=== PATIENT | female | born 1950 | race Caucasian/White ===

== ENCOUNTER 2017-08-02 13:07 | Emergency (ER) | payer MEDICARE ==
[2017-08-02] MEDS ORDERED: HYDROcodone/Acetaminophen 10/325 mg Tablet ONE (14:12)
[2017-08-02] MEDS ORDERED: Cephalexin 500 MG CAP ONE (14:12)
[2017-08-02] MEDS ORDERED: Naproxen 500 MG TAB ONE (14:12)
== END 2017-08-02 14:20 | disposition home or self-care (01) ==
LOC: MADERS 13:07
DX: L02.01 Cutaneous abscess of face (principal); E11.9 Type 2 diabetes mellitus without complications; E03.9 Hypothyroidism, unspecified; E78.5 Hyperlipidemia, unspecified; I10 Essential (primary) hypertension; Z79.4 Long term (current) use of insulin; Z79.899 Other long term (current) drug therapy; Z79.84 Long term (current) use of oral hypoglycemic drugs
CPT/HCPCS: 99282

== ENCOUNTER 2018-03-18 14:30 | Outpatient (CLI) | payer MEDICARE ==
--- NOTE | 2018-03-18 16:48 | RAD ---
PA AND LATERAL CHEST X-RAY 03/18/18 HISTORY: Bronchitis. COMPARISON: None available. FINDINGS: The cardiac silhouette and pulmonary vasculature are within normal limits. The lungs are clear. [place] us structures are intact. IMPRESSION: No acute cardiopulmonary process. POS: [facility]
== END 2018-03-18 14:31 | disposition home or self-care (01) ==
LOC: MADRAD 14:30
PROVIDERS: ATTEND Physician Assistant
DX: J40 Bronchitis, not specified as acute or chronic (principal)
CPT/HCPCS: 71046

== ENCOUNTER 2018-05-31 10:23 | Emergency (ER) | payer MEDICARE ==
[2018-05-31] MEDS ORDERED: Bacitracin Zinc 1 Packet ONE (10:55)
[2018-05-31] MEDS ORDERED: Amoxicillin/Potassium Clav 875 MG TAB ONE (11:07)
== END 2018-05-31 11:05 | disposition home or self-care (01) ==
LOC: MADERS 10:23
DX: S61.452A Open bite of left hand, initial encounter (principal); E11.9 Type 2 diabetes mellitus without complications; Z79.4 Long term (current) use of insulin; Z79.899 Other long term (current) drug therapy; W55.01XA Bitten by cat, initial encounter
CPT/HCPCS: 99283

== ENCOUNTER 2018-09-01 08:16 | Outpatient (CLI) | payer MEDICARE ==
[2018-09-01] MEDS ORDERED: Iopamidol 370 76% 100 ML VIAL ONE (09:21)
--- NOTE | 2018-09-01 09:46 | CT ---
CT CHEST WITH IV CONTRAST: History: Cough, congestion. FINDINGS: No focal infiltrate is evident. Airways are patent. Minimal linear scarring at the left posterior ape x. Subtle irregularity along the inner margin of the posterolateral aspect of the right lower rib may represent an old rib injury. No pleural fluid, pneumothorax, or mediastinal adenopathy. Calcificatio n in the coronary arteries. IMPRESSION: 1. Atherosclerosis. 2. No acute pulmonary abnormalities are demonstrated. POS: [facility]
== END 2018-09-01 08:17 | disposition home or self-care (01) ==
LOC: MADCT 08:16
PROVIDERS: ATTEND Physician Assistant
DX: R09.89 Other specified symptoms and signs involving the circulatory and respiratory systems (principal); I25.10 Atherosclerotic heart disease of native coronary artery without angina pectoris
CPT/HCPCS: 71260

== ENCOUNTER 2018-12-29 11:47 | Emergency (ER) | payer MEDICARE | END 2018-12-29 12:30 | disposition home or self-care (01) | LOC: MADERS 11:47 | DX: J18.9 Pneumonia, unspecified organism (principal); I11.0 Hypertensive heart disease with heart failure; I50.9 Heart failure, unspecified; J44.9 Chronic obstructive pulmonary disease, unspecified; E03.9 Hypothyroidism, unspecified; E78.5 Hyperlipidemia, unspecified; E11.9 Type 2 diabetes mellitus without complications; Z79.899 Other long term (current) drug therapy; Z79.84 Long term (current) use of oral hypoglycemic drugs; Z79.82 Long term (current) use of aspirin | CPT/HCPCS: 99284 ==

== ENCOUNTER 2019-04-08 14:34 | Emergency (ER) | payer MEDICARE ==
[2019-04-08] MEDS ORDERED: Dexamethasone 4 MG TAB ONE (15:19)
--- NOTE | 2019-04-08 15:33 | RAD ---
CHEST TWO VIEWS: HISTORY: Cough. COMPARISON: 03/18/2018 FINDINGS: Prompt pulmonary artery segments are again noted, especially pronounced on the right. This is a stab le finding. The lungs appear clear. No infiltrate or vascular congestion. IMPRESSION: The prominent right pulmonary artery is a stable finding. No acute abnormality. POS: [facility]
[2019-04-08] MEDS ORDERED: Ventolin HFA Inhaler 60 PUFF INHALER ONE (15:49)
[2019-04-08] MEDS ORDERED: Amoxicillin/Potassium Clav 875 MG TAB ONE (15:49)
== END 2019-04-08 16:02 | disposition home or self-care (01) ==
LOC: MADERS 14:34
DX: J18.9 Pneumonia, unspecified organism (principal); I11.0 Hypertensive heart disease with heart failure; I50.9 Heart failure, unspecified; E11.9 Type 2 diabetes mellitus without complications; E03.9 Hypothyroidism, unspecified; J44.9 Chronic obstructive pulmonary disease, unspecified; E78.5 Hyperlipidemia, unspecified; Z79.51 Long term (current) use of inhaled steroids; Z79.899 Other long term (current) drug therapy; Z79.82 Long term (current) use of aspirin
CPT/HCPCS: 71046; J7620; J8540

== ENCOUNTER 2019-06-02 12:32 | Emergency (ER) | payer MEDICARE ==
[2019-06-02 13:02] LABS: Bilirubin Negative (Negative); Blood, Urine Trace (Negative); Clarity Clear (Clear); Glucose, Urine (Dipstick) Negative (Negative); Leukocyte Small (Negative); Nitrite Negative (Negative); Protein, Urine (Dipstick) Negative (Neg-Trace); Urobilinogen 0.2 mg/dL (Less than 2)
[2019-06-02 13:09] LABS: Bacteria/HPF Rare-Few HPF (None Seen); RBC/HPF 0-3 HPF (0-3); WBC/HPF 21-50 HPF (0-3)
== END 2019-06-02 13:34 | disposition home or self-care (01) ==
LOC: MADERS 12:32
DX: N39.0 Urinary tract infection, site not specified (principal); I89.0 Lymphedema, not elsewhere classified; E11.9 Type 2 diabetes mellitus without complications; E03.9 Hypothyroidism, unspecified; E78.5 Hyperlipidemia, unspecified; I11.0 Hypertensive heart disease with heart failure; I50.9 Heart failure, unspecified; Z79.899 Other long term (current) drug therapy; Z79.82 Long term (current) use of aspirin; Z79.51 Long term (current) use of inhaled steroids
CPT/HCPCS: 81003; 81015; 87077; 87086; 87186; 99283

== ENCOUNTER 2019-06-03 06:34 | Emergency (ER) | payer MEDICARE ==
[2019-06-03] MEDS ORDERED: Acetaminophen 500 MG TAB ONE (06:51)
[2019-06-03] MEDS ORDERED: Sodium Chloride 0.9% 1,000 ML ONE (07:31)
[2019-06-03] MEDS ORDERED: Ketorolac Tromethamine 30 MG/ML VIAL ONE (07:31)
[2019-06-03] MEDS ORDERED: cefTRIAXone\\ROCEPHIN 1 GM VIAL ONE (07:31)
[2019-06-03] MEDS ORDERED: Ondansetron PF 4 MG/2 ML Vial ONE (07:31)
[2019-06-03 07:55] LABS: ALT (SGPT) 14 U/L (8-55); AST (SGOT) 14 U/L (5-34); Albumin 3.9 g/dL (3.4-4.8); Alkaline Phosphatase 107 U/L (40-150); Anion Gap 16 mmol/L (10-20); BUN (Urea Nitrogen) 11 mg/dL (9.8-20.1); Bilirubin, Total 0.5 mg/dL (0.2-1.2); Calc. Creatinine Clearance 0 mL/min (70-130); Calcium 9.4 mg/dL (7.8-10.44); Carbon Dioxide 25 mmol/L (23-31); Chloride 98 mmol/L (98-107); Estimated GFR-MDRD 73; Globulin 3.5 g/dL (2.4-3.5); Glucose 254 mg/dL (80-115); Potassium 4.1 mmol/L (3.5-5.1); Protein, Total 7.4 g/dL (6.0-8.3); Sodium 135 mmol/L (136-145)
[2019-06-03 07:56] LABS: Band 1 % (5-11); Hemoglobin 11.6 g/dL (12.0-16.0); MDiff Complete? YES; Mean Corpuscular HGB CONC 31.5 g/dL (32.0-36.0); Mean Corpuscular Hemoglobin 27.4 pg (27.0-31.0); Mean Platelet Volume 6.8 fL (7.4-10.4); Monocytes 1 % (0-10); Neutrophil 97 % (42-75); Platelet Count 287 thou/uL (130-400); Platelet Morphology Comment Appears Adequate; Reactive Lymphocytes 1 % (0-10); Red Blood Cell (RBC) Count 4.24 mill/uL (4.20-5.40); White Blood Cell (WBC) Count 16.1 thou/uL (4.8-10.8)
--- NOTE | 2019-06-03 09:45 | CT ---
CTA Angio Chest W WO Con History: Dyspnea. Pneumonia. Comparison: Radiograph same day Findings: CT angiogram of the chest performed after the intravenous administration of contrast. 3-D r endering provided. Exam is limited due to the delayed phase of contrast. No proximal segmental pulmonary arterial filling defect. Pulmonary arteries are dilated. Moderate amount of fluid within th e right inferior pericardial venous recess. Limited evaluation of the upper abdomen is unremarkable. No pneumonia. No pneumothorax. No effusion. Extensive motion artifact throughout the exam. No thoracic spine compression fracture. No acute osseous abnormality. Impression: 1. No proximal segmental pulmonary arterial filling defect. 2. No acute inflammatory process within the chest. 3. Mild dilatation of the pulmonary arteries, a secondary sign of pulmonary arterial hypertension.
[2019-06-03] MEDS ORDERED: Insulin Regular 300 UNITS/3 ML VIAL ONE (10:17)
[2019-06-03] MEDS ORDERED: Iopamidol 370 76% 125 ML VIAL FS ONE (13:52)
== END 2019-06-03 10:22 | disposition short-term general hospital (02) ==
LOC: MADERS 06:34
DX: A41.9 Sepsis, unspecified organism (principal); E87.70 Fluid overload, unspecified; E11.65 Type 2 diabetes mellitus with hyperglycemia; E87.1 Hypo-osmolality and hyponatremia; R09.02 Hypoxemia; I11.0 Hypertensive heart disease with heart failure; I50.9 Heart failure, unspecified; E78.5 Hyperlipidemia, unspecified; E03.9 Hypothyroidism, unspecified; J44.9 Chronic obstructive pulmonary disease, unspecified; Z79.82 Long term (current) use of aspirin; Z79.84 Long term (current) use of oral hypoglycemic drugs; Z79.899 Other long term (current) drug therapy
CPT/HCPCS: 36415; 71275; 80053; 83605; 83880; 85025; 87040; 94760; 96365; 96375; J0696; J1815; J1885; J2405; J7050; Q9967

== ENCOUNTER 2019-08-10 19:18 | Emergency (ER) | payer MEDICARE ==
[~2019-08-10 19:18] MED LIST: Iopamidol 370 76% 125 ML VIAL FS ONE
[2019-08-10] MEDS ORDERED: methylPREDNISolone Sod Succ/PF 125 MG/2 ML VIAL ONE (20:01)
[2019-08-10 20:31] LABS: #Basophils 0.1 thou/uL (0.0-0.2); #Eosinphils 0.6 thou/uL (0.0-0.7); #Lymphocytes 3.1 thou/uL (1.20-3.40); #Monocytes 0.7 thou/uL (0.11-0.59); #Neutrophils 10.5 thou/uL (1.40-6.50); %Basophils 0.9 % (0.0-1.0); %Eosinophils 3.8 % (0.0-10.0); %Lymphocytes 20.9 % (21.0-51.0); %Monocytes 4.5 % (0.0-10.0); Hemoglobin 9.6 g/dL (12.0-16.0); Mean Corpuscular HGB CONC 31.6 g/dL (32.0-36.0); Mean Corpuscular Hemoglobin 27.5 pg (27.0-31.0); Mean Corpuscular Volume 86.8 fL (78.0-98.0); Mean Platelet Volume 5.9 fL (7.4-10.4); Platelet Count 359 thou/uL (130-400); RBC Distribution Width 14.8 % (11.5-14.5); Red Blood Cell (RBC) Count 3.51 mill/uL (4.20-5.40); White Blood Cell (WBC) Count 14.9 thou/uL (4.8-10.8)
[2019-08-10 20:48] LABS: ALT (SGPT) 10 U/L (8-55); AST (SGOT) 10 U/L (5-34); Albumin 3.9 g/dL (3.4-4.8); Alkaline Phosphatase 103 U/L (40-150); Anion Gap 18 mmol/L (10-20); BUN (Urea Nitrogen) 13 mg/dL (9.8-20.1); Bilirubin, Total 0.3 mg/dL (0.2-1.2); Calc. Creatinine Clearance 0 mL/min (70-130); Calcium 9.6 mg/dL (7.8-10.44); Carbon Dioxide 25 mmol/L (23-31); Chloride 100 mmol/L (98-107); Estimated GFR-MDRD 65; Globulin 3.3 g/dL (2.4-3.5); Glucose 302 mg/dL (80-115); Potassium 4.5 mmol/L (3.5-5.1); Protein, Total 7.2 g/dL (6.0-8.3); Sodium 138 mmol/L (136-145)
--- NOTE | 2019-08-10 20:48 | RAD ---
CHEST ONE VIEW: 08/10/19 HISTORY: Dyspnea. COMPARISON: 04/08/19. FINDINGS: Upper normal cardiac silhouette. Pulmonary vessels are slightly prominent. The costophrenic angles ar e clear. Patchy interstitial opacities, without consolidation, or mass. No pneumothorax or osseous ab normalities. IMPRESSION: Cardiomegaly. Pulmonary vascular prominence. Correlate for volume overload. POS: [facility]
[2019-08-10] MEDS ORDERED: Furosemide 40 MG/4 ML VIAL ONE (21:53)
--- NOTE | 2019-08-10 23:40 | CT ---
CT ANGIOGRAM THORAX WITH CONTRAST: (CTA pulmonary angiogram) HISTORY: 69-year-old female with elevated d-dimer and dyspnea TECHNIQUE: IV injection of iodinated contrast. Scan acquisition timing attempted to coincide with iodinated contrast bolus reaching maximal density in pulmonary arteries. 3-D MIP reconstructions. FINDINGS: Diffuse mild groundglass pulmonary densities throughout the bilateral upper lobes and lower lobes, no nspecific. The images, especially the lower lung zones, are significantly degraded by patient breathing motion artifact. This makes it difficult to evaluate for pulmonary thromboembolism involvin g the lower lobe pulmonary artery branches. There is no pulmonary thromboembolism involving the pulmonic trunk, left and right main pulmonary arteries, or the proximal upper lobe first order branch es. Mild mediastinal and bilateral hilar lymphadenopathy without calcification. Tiny right pleural effusion. No pneumothorax. No pericardial effusion. No thoracic aortic aneurysm or dissection. Diffus e narrowing of the right mainstem bronchus and lower portion of trachea. Milder degree of diffuse narrowing of left mainstem bronchus. IMPRESSION: 1. Suboptimal evaluation. Images degraded by breathing motion. 2. No central pulmonary thromboembolism. Difficult to evaluate for peripheral pulmonary thromboemboli sm. 3. Apparent diffuse mild groundglass pulmonary densities. Some of this could be artifact due to breat valdez motion, but it is likely that at least some of this represents mild pulmonary interstitial edema. 4. Mild mediastinal and bilateral hilar lymphadenopathy. 5. Diffuse narrowing of the bilateral mainstem bronchi, especially the right, and the sarahi. 6. Tiny right pleural effusion.
== END 2019-08-10 23:50 | disposition home or self-care (01) ==
LOC: MADERS 19:18
DX: J44.1 Chronic obstructive pulmonary disease with (acute) exacerbation (principal); D64.9 Anemia, unspecified; I11.0 Hypertensive heart disease with heart failure; I50.9 Heart failure, unspecified; E11.9 Type 2 diabetes mellitus without complications; E03.9 Hypothyroidism, unspecified; E78.5 Hyperlipidemia, unspecified; Z79.899 Other long term (current) drug therapy; Z79.4 Long term (current) use of insulin; Z79.82 Long term (current) use of aspirin; Z79.51 Long term (current) use of inhaled steroids
CPT/HCPCS: 71045; 71275; 80053; 83605; 83880; 84484; 85025; 85379; 87040; 93005; 94760; 96374; 96375; J1940; J2930; J7620; Q9967

== ENCOUNTER 2019-10-23 12:44 | Emergency (ER) | payer MEDICARE | END 2019-10-23 14:18 | disposition home or self-care (01) | LOC: MADERS 12:44 | DX: J44.1 Chronic obstructive pulmonary disease with (acute) exacerbation (principal); I11.0 Hypertensive heart disease with heart failure; I50.9 Heart failure, unspecified; E11.9 Type 2 diabetes mellitus without complications; E03.9 Hypothyroidism, unspecified; E78.5 Hyperlipidemia, unspecified; Z79.899 Other long term (current) drug therapy; Z79.4 Long term (current) use of insulin; Z79.82 Long term (current) use of aspirin; Z79.51 Long term (current) use of inhaled steroids; Z79.52 Long term (current) use of systemic steroids | CPT/HCPCS: 96372; 99284; J1040; J7620 ==

== ENCOUNTER 2021-05-24 10:21 | Outpatient (CLI) | payer MEDICARE | END 2021-05-24 10:22 | disposition home or self-care (01) | LOC: MADRAD 10:21 | PROVIDERS: ATTEND Physician Assistant | DX: M79.601 Pain in right arm (principal); M47.812 Spondylosis without myelopathy or radiculopathy, cervical region | CPT/HCPCS: 72040 ==

== ENCOUNTER 2021-06-09 16:28 | Emergency (ER) | payer MEDICARE | END 2021-06-09 17:42 | disposition home or self-care (01) | LOC: MADERS 16:28 | DX: S82.831A Other fracture of upper and lower end of right fibula, initial encounter for closed fracture (principal); S82.54XA Nondisplaced fracture of medial malleolus of right tibia, initial encounter for closed fracture; J45.909 Unspecified asthma, uncomplicated; E11.9 Type 2 diabetes mellitus without complications; I11.0 Hypertensive heart disease with heart failure; I50.9 Heart failure, unspecified; E03.9 Hypothyroidism, unspecified; E78.5 Hyperlipidemia, unspecified; J44.9 Chronic obstructive pulmonary disease, unspecified; Z79.82 Long term (current) use of aspirin; Z79.899 Other long term (current) drug therapy; Z79.84 Long term (current) use of oral hypoglycemic drugs; X50.9XXA Other and unspecified overexertion or strenuous movements or postures, initial encounter | CPT/HCPCS: 27760 ==

== ENCOUNTER 2022-03-04 10:06 | Emergency (ER) | payer MEDICARE ==
[~2022-03-04 10:06] MED LIST changes: -Iopamidol 370 76% 125 ML VIAL FS ONE; +Sodium Chloride 0.9% 500 ML BAG ONE
[2022-03-04 10:44] LABS: #Basophils 0.2 thou/uL (0.0-0.2); #Eosinphils 0.1 thou/uL (0.0-0.7); #Lymphocytes 2.5 thou/uL (1.20-3.40); #Neutrophils 8.4 thou/uL (1.40-6.50); %Basophils 1.3 % (0.0-1.0); %Eosinophils 0.8 % (0.0-10.0); %Lymphocytes 20.8 % (21.0-51.0); %Monocytes 8.1 % (0.0-10.0); Hemoglobin 12.4 g/dL (12.0-16.0); Mean Corpuscular HGB CONC 32.5 g/dL (32.0-36.0); Mean Corpuscular Hemoglobin 28.6 pg (27.0-31.0); Mean Corpuscular Volume 88.2 fL (78.0-98.0); Mean Platelet Volume 6.3 fL (7.4-10.4); Platelet Count 466 thou/uL (130-400); RBC Distribution Width 12.9 % (11.5-14.5); Red Blood Cell (RBC) Count 4.34 mill/uL (4.20-5.40); White Blood Cell (WBC) Count 12.1 thou/uL (4.8-10.8)
[2022-03-04 11:02] LABS: ALT (SGPT) 15 U/L (8-55); AST (SGOT) 17 U/L (5-34); Alkaline Phosphatase 112 U/L (40-110); Anion Gap 17 mmol/L (10-20); BUN (Urea Nitrogen) 12 mg/dL (9.8-20.1); Bilirubin, Total 0.4 mg/dL (0.2-1.2); Calc. Creatinine Clearance 0 mL/min (70-130); Calcium 9.9 mg/dL (7.8-10.44); Carbon Dioxide 21 mmol/L (23-31); Chloride 98 mmol/L (98-107); Globulin 3.9 g/dL (2.4-3.5); Glucose 178 mg/dL (83-110); Potassium 4.4 mmol/L (3.5-5.1); Protein, Total 7.9 g/dL (5.8-8.1); Sodium 132 mmol/L (136-145)
[2022-03-04] MEDS ORDERED: Lorazepam 2 MG/ML VIAL ONE (11:06)
[2022-03-04] MEDS ORDERED: Lorazepam 2 MG/ML VIAL SLOW IVP SCH (11:15)
== END 2022-03-04 12:10 | disposition home or self-care (01) ==
LOC: MADERS 10:06
DX: F45.8 Other somatoform disorders (principal); G47.00 Insomnia, unspecified; K11.7 Disturbances of salivary secretion; E11.9 Type 2 diabetes mellitus without complications; I11.0 Hypertensive heart disease with heart failure; I50.9 Heart failure, unspecified; J44.9 Chronic obstructive pulmonary disease, unspecified; Z79.899 Other long term (current) drug therapy; Z79.82 Long term (current) use of aspirin; Z79.84 Long term (current) use of oral hypoglycemic drugs; Z79.4 Long term (current) use of insulin
CPT/HCPCS: 71045; 80053; 84443; 85025; 93005; 94760; 96374; J2060; J7030

== ENCOUNTER 2022-03-04 19:17 | Emergency (ER) | payer MEDICARE | END 2022-03-04 19:58 | disposition home or self-care (01) | LOC: MADERS 19:17 | DX: F41.9 Anxiety disorder, unspecified (principal); G47.00 Insomnia, unspecified; I10 Essential (primary) hypertension; E11.9 Type 2 diabetes mellitus without complications; Z79.899 Other long term (current) drug therapy; Z79.84 Long term (current) use of oral hypoglycemic drugs; Z79.82 Long term (current) use of aspirin; Z79.4 Long term (current) use of insulin; E78.5 Hyperlipidemia, unspecified; J44.9 Chronic obstructive pulmonary disease, unspecified | CPT/HCPCS: 71045; 80053; 84443; 85025; 93005; 94760; 96374; 99283; J2060; J7030 ==

== ENCOUNTER 2022-05-02 15:39 | Emergency (ER) | payer MEDICARE | END 2022-05-02 16:41 | disposition short-term general hospital (02) | LOC: MADERS 15:39 | DX: R60.0 Localized edema (principal); I11.0 Hypertensive heart disease with heart failure; I50.9 Heart failure, unspecified; E11.9 Type 2 diabetes mellitus without complications; E03.9 Hypothyroidism, unspecified; E78.5 Hyperlipidemia, unspecified; J44.9 Chronic obstructive pulmonary disease, unspecified; Z79.899 Other long term (current) drug therapy; Z79.4 Long term (current) use of insulin | CPT/HCPCS: 99284 ==

== ENCOUNTER 2022-06-08 01:22 | Emergency (ER) | payer MEDICARE ==
[2022-06-08] MEDS ORDERED: Aspirin Chewable 81 MG TAB ONE (01:59)
[2022-06-08 02:20] LABS: #Basophils 0.2 thou/uL (0.0-0.2); #Eosinphils 0.7 thou/uL (0.0-0.7); #Lymphocytes 2.9 thou/uL (1.20-3.40); %Eosinophils 3.9 % (0.0-10.0); %Lymphocytes 17.3 % (21.0-51.0); %Monocytes 6.1 % (0.0-10.0); %Neutrophils 71.7 % (42.0-75.0); Hemoglobin 10.5 g/dL (12.0-16.0); Mean Corpuscular HGB CONC 32.9 g/dL (32.0-36.0); Mean Corpuscular Hemoglobin 27.8 pg (27.0-31.0); Mean Corpuscular Volume 84.3 fL (78.0-98.0); Mean Platelet Volume 6.5 fL (7.4-10.4); Platelet Count 372 thou/uL (130-400); RBC Distribution Width 13.2 % (11.5-14.5); White Blood Cell (WBC) Count 16.7 thou/uL (4.8-10.8)
[2022-06-08 02:38] LABS: ALT (SGPT) 18 U/L (8-55); AST (SGOT) 17 U/L (5-34); Albumin 3.8 g/dL (3.4-4.8); Alkaline Phosphatase 92 U/L (40-110); Anion Gap 16 mmol/L (10-20); BUN (Urea Nitrogen) 32 mg/dL (9.8-20.1); Bilirubin, Total 0.3 mg/dL (0.2-1.2); Calc. Creatinine Clearance 0 mL/min (70-130); Calcium 9.4 mg/dL (7.8-10.44); Carbon Dioxide 23 mmol/L (23-31); Chloride 100 mmol/L (98-107); Estimated GFR 68; Globulin 3.6 g/dL (2.4-3.5); Glucose 187 mg/dL (83-110); Potassium 4.6 mmol/L (3.5-5.1); Protein, Total 7.4 g/dL (5.8-8.1); Sodium 134 mmol/L (136-145)
[2022-06-08 03:12] LABS: Bilirubin Negative (Negative); Blood, Urine Negative (Negative); Clarity Clear (Clear); Glucose, Urine (Dipstick) Negative (Negative); Ketone, Urine Negative (Negative); Leukocyte Moderate (Negative); Nitrite Negative (Negative); Protein, Urine (Dipstick) Negative (Neg-Trace); Urobilinogen 0.2 mg/dL (Less than 2)
[2022-06-08 03:20] LABS: Bacteria/HPF None Seen HPF (None Seen); RBC/HPF 0-3 HPF (0-3); Squamous Epithelial 0-3 HPF (0-3); Transitional Epithelial 0-3 HPF (None Seen)
[2022-06-08] MEDS ORDERED: cefTRIAXone\\ROCEPHIN 1 GM VIAL ONE (03:20)
[2022-06-08] MEDS ORDERED: Furosemide 40 MG/4 ML VIAL ONE (03:21)
[2022-06-08] MEDS ORDERED: methylPREDNISolone Sod Succ/PF 125 MG/2 ML VIAL ONE (03:21)
[2022-06-08] MEDS ORDERED: Sodium Chloride 0.9% 100 ML ONE (03:22)
[2022-06-08 04:37] LABS: SARS-CoV-2 NAA Rapid Test Not Detected (NotDetected)
== END 2022-06-08 04:12 | disposition short-term general hospital (02) ==
LOC: MADERS 01:22
DX: J44.1 Chronic obstructive pulmonary disease with (acute) exacerbation (principal); N39.0 Urinary tract infection, site not specified; R07.89 Other chest pain; I11.0 Hypertensive heart disease with heart failure; I50.9 Heart failure, unspecified; E11.9 Type 2 diabetes mellitus without complications; E03.9 Hypothyroidism, unspecified; E78.5 Hyperlipidemia, unspecified; Z20.822 Contact with and (suspected) exposure to COVID-19; Z79.82 Long term (current) use of aspirin; Z79.4 Long term (current) use of insulin; Z79.899 Other long term (current) drug therapy
CPT/HCPCS: 71045; 80053; 83605; 83880; 84484; 85025; 85379; 87086; 93005; 96365; 96375; 99285; U0002; 81003; 81015; J0696; J1940; J2930; J7620

== ENCOUNTER 2023-01-27 14:19 | Outpatient (CLI) | payer MEDICARE | END 2023-01-27 14:20 | disposition home or self-care (01) | LOC: MADLAB 14:19 | PROVIDERS: ATTEND Physician Assistant | DX: R20.2 Paresthesia of skin (principal); M47.812 Spondylosis without myelopathy or radiculopathy, cervical region; M50.322 Other cervical disc degeneration at C5-C6 level | CPT/HCPCS: 72050 ==

== ENCOUNTER 2023-01-31 17:29 | Emergency (ER) | payer MEDICARE ==
[~2023-01-31 17:29] MED LIST changes: +Iopamidol 370 76% 125 ML VIAL FS ONE; +Sodium Chloride 0.9% 100 ML BAG ONE; -Sodium Chloride 0.9% 500 ML BAG ONE
[2023-01-31] MEDS ORDERED: Aspirin 325 MG TAB ONE (18:11)
[2023-01-31 18:16] LABS: #Basophils 0.2 thou/uL (0.0-0.2); #Eosinphils 0.2 thou/uL (0.0-0.7); #Lymphocytes 3.7 thou/uL (1.20-3.40); #Neutrophils 7.7 thou/uL (1.40-6.50); %Basophils 1.2 % (0.0-1.0); %Eosinophils 1.8 % (0.0-10.0); %Lymphocytes 28.9 % (21.0-51.0); %Monocytes 7.8 % (0.0-10.0); %Neutrophils 60.4 % (42.0-75.0); Hemoglobin 10.9 g/dL (12.0-16.0); Mean Corpuscular HGB CONC 34.1 g/dL (32.0-36.0); Mean Corpuscular Hemoglobin 29.3 pg (27.0-31.0); Mean Corpuscular Volume 86.1 fl (78.0-98.0); Mean Platelet Volume 5.9 fL (7.4-10.4); Platelet Count 379 10x3/uL (130-400); RBC Distribution Width 12.5 % (11.5-14.5); Red Blood Cell (RBC) Count 3.72 mill/uL (4.20-5.40); White Blood Cell (WBC) Count 12.8 10x3/uL (4.8-10.8)
[2023-01-31 18:24] LABS: Prothrombin Time 13.3 sec (12.0-14.7)
[2023-01-31 18:25] LABS: PTT 33.3 sec (22.9-36.1)
[2023-01-31 18:33] LABS: ALT (SGPT) 13 U/L (8-55); AST (SGOT) 13 U/L (5-34); Albumin 4.3 g/dL (3.4-4.8); Alkaline Phosphatase 60 U/L (40-110); Anion Gap 14 mmol/L (10-20); BUN (Urea Nitrogen) 35 mg/dL (9.8-20.1); Bilirubin, Total 0.2 mg/dL (0.2-1.2); Calc. Creatinine Clearance 0 mL/min (70-130); Calcium 9.8 mg/dL (7.8-10.44); Carbon Dioxide 23 mmol/L (23-31); Chloride 103 mmol/L (98-107); Estimated GFR 44; Glucose 223 mg/dL (83-110); Magnesium 1.9 mg/dL (1.6-2.6); Potassium 4.2 mmol/L (3.5-5.1); Protein, Total 7.3 g/dL (5.8-8.1); Sodium 136 mmol/L (136-145)
[2023-01-31 18:47] LABS: Bilirubin Negative (Negative); Blood, Urine Negative (Negative); Clarity Slightly Cloudy (Clear); Glucose, Urine (Dipstick) Negative (Negative); Ketone, Urine Negative (Negative); Leukocyte Moderate (Negative); Nitrite Negative (Negative); Protein, Urine (Dipstick) Negative (Neg-Trace); Specific Gravity, Urine 1.015 (1.005-1.030); Urobilinogen 0.2 mg/dL (Less than 2)
[2023-01-31 18:48] LABS: Bacteria/HPF 4+ HPF (None Seen); RBC/HPF 0-3 HPF (0-3); Squamous Epithelial 0-3 HPF (0-3); WBC/HPF Greater than 50 HPF (0-3)
[2023-01-31] MEDS ORDERED: Sodium Chloride 0.9% 100 ML ONE ×2 (19:18→19:20)
[2023-01-31] MEDS ORDERED: cefTRIAXone\\ROCEPHIN 1 GM VIAL ONE (19:18)
[2023-01-31] MEDS ORDERED: Diltiazem 125 MG/25 ML ONE (19:20)
[2023-01-31 19:37] LABS: SARS-CoV-2 NAA Rapid Test Not Detected (NotDetected)
[2023-01-31 21:39] LABS: Troponin I 0.015 ng/mL (< 0.028)
== END 2023-01-31 22:25 | disposition short-term general hospital (02) ==
LOC: MADERS 17:29
DX: I48.91 Unspecified atrial fibrillation (principal); A41.9 Sepsis, unspecified organism; N39.0 Urinary tract infection, site not specified; D72.829 Elevated white blood cell count, unspecified; I11.0 Hypertensive heart disease with heart failure; I50.9 Heart failure, unspecified; E11.9 Type 2 diabetes mellitus without complications; E03.9 Hypothyroidism, unspecified; E78.5 Hyperlipidemia, unspecified; J44.9 Chronic obstructive pulmonary disease, unspecified; Z79.4 Long term (current) use of insulin; Z79.82 Long term (current) use of aspirin
CPT/HCPCS: 71045; 71275; 82962; 83605; 83735; 83880; 84484 ×2; 85610; 85730; 87040; 87086; 93005; 96365; 96366; 96372; 96375; 96376; 99285; U0002; 36416; 80053; 81003; 81015; 84443; 85025; 87077; 87186; J0696; J1650; J3490; Q9967

== ENCOUNTER 2023-02-13 11:40 | Emergency (ER) | payer MEDICARE | END 2023-02-13 13:00 | disposition home or self-care (01) | LOC: MADERS 11:40 | DX: I11.0 Hypertensive heart disease with heart failure (principal); I50.9 Heart failure, unspecified; J45.909 Unspecified asthma, uncomplicated; Z79.899 Other long term (current) drug therapy; E11.9 Type 2 diabetes mellitus without complications; E03.9 Hypothyroidism, unspecified; E78.5 Hyperlipidemia, unspecified | CPT/HCPCS: 99283 ==

== ENCOUNTER 2023-02-26 07:31 | Outpatient (CLI) | payer MEDICARE | END 2023-02-26 07:32 | disposition home or self-care (01) | LOC: MADULT 07:31 | PROVIDERS: ATTEND Urology | DX: N39.0 Urinary tract infection, site not specified (principal) | CPT/HCPCS: 76770 ==

== ENCOUNTER 2023-03-05 14:49 | Outpatient (CLI) | payer MEDICARE | END 2023-03-05 14:50 | disposition home or self-care (01) | LOC: MADLAB 14:49 | PROVIDERS: ATTEND Nurse Practitioner Family | DX: R07.89 Other chest pain (principal); J44.9 Chronic obstructive pulmonary disease, unspecified; J18.9 Pneumonia, unspecified organism; J45.998 Other asthma; N39.0 Urinary tract infection, site not specified; I10 Essential (primary) hypertension; I48.91 Unspecified atrial fibrillation; E78.5 Hyperlipidemia, unspecified; E03.9 Hypothyroidism, unspecified; E13.01 Other specified diabetes mellitus with hyperosmolarity with coma | CPT/HCPCS: 71046 ==

== ENCOUNTER 2023-03-25 01:32 | Emergency (ER) | payer MEDICARE ==
[2023-03-25] MEDS ORDERED: Sodium Chloride 0.9% 500 ML ONE (02:00)
[2023-03-25] MEDS ORDERED: Piperacillin/Tazobactam 4.5 GM VIAL ONE (02:00)
[2023-03-25] MEDS ORDERED: Sodium Chloride 0.9% 100 ML ONE ×2 (02:00→11:39)
[2023-03-25 02:03] LABS: #Basophils 0.1 thou/uL (0.0-0.2); #Eosinphils 0.2 thou/uL (0.0-0.7); #Lymphocytes 0.8 thou/uL (1.20-3.40); #Monocytes 0.6 thou/uL (0.11-0.59); #Neutrophils 16.8 thou/uL (1.40-6.50); %Basophils 0.5 % (0.0-1.0); %Eosinophils 0.9 % (0.0-10.0); %Lymphocytes 4.1 % (21.0-51.0); %Monocytes 3.4 % (0.0-10.0); %Neutrophils 91.1 % (42.0-75.0); Hemoglobin 10.6 g/dL (12.0-16.0); Mean Corpuscular HGB CONC 33.2 g/dL (32.0-36.0); Mean Corpuscular Hemoglobin 29.8 pg (27.0-31.0); Mean Corpuscular Volume 89.8 fl (78.0-98.0); Mean Platelet Volume 7.1 fL (7.4-10.4); Platelet Count 433 10x3/uL (130-400); RBC Distribution Width 14.2 % (11.5-14.5); Red Blood Cell (RBC) Count 3.56 mill/uL (4.20-5.40); White Blood Cell (WBC) Count 18.5 10x3/uL (4.8-10.8)
[2023-03-25 02:12] LABS: Bilirubin Negative (Negative); Blood, Urine Negative (Negative); Clarity Clear (Clear); Glucose, Urine (Dipstick) Negative (Negative); Ketone, Urine Negative (Negative); Leukocyte Negative (Negative); Nitrite Negative (Negative); Protein, Urine (Dipstick) Negative (Neg-Trace); Urobilinogen 0.2 mg/dL (Less than 2)
[2023-03-25 02:17] LABS: ALT (SGPT) 11 U/L (8-55); AST (SGOT) 16 U/L (5-34); Albumin 3.8 g/dL (3.4-4.8); Alkaline Phosphatase 77 U/L (40-110); Anion Gap 15 mmol/L (10-20); BUN (Urea Nitrogen) 26 mg/dL (9.8-20.1); Bilirubin, Total 0.2 mg/dL (0.2-1.2); Calc. Creatinine Clearance 0 mL/min (70-130); Calcium 9.5 mg/dL (7.8-10.44); Carbon Dioxide 21 mmol/L (23-31); Chloride 101 mmol/L (98-107); Estimated GFR 70; Globulin 2.8 g/dL (2.4-3.5); Glucose 176 mg/dL (83-110); Magnesium 1.6 mg/dL (1.6-2.6); Potassium 4.9 mmol/L (3.5-5.1); Protein, Total 6.6 g/dL (5.8-8.1); Sodium 132 mmol/L (136-145)
[2023-03-25] MEDS ORDERED: Vancomycin 1 GM VIAL ONE ×2 (02:54→12:38)
[2023-03-25] MEDS ORDERED: Sodium Chloride 0.9% 250 ML 250 ML ONE ×2 (02:54→12:38)
[2023-03-25 03:43] LABS: SARS-CoV-2 NAA Rapid Test Not Detected (NotDetected)
[2023-03-25] MEDS ORDERED: Acetaminophen 500 MG TAB ONE ×2 (04:54→13:25)
[2023-03-25 04:56] LABS: Troponin I Less than 0.010 ng/mL (< 0.028)
[2023-03-25] MEDS ORDERED: Insulin Regular 300 UNITS/3 ML VIAL ONE (09:20)
[2023-03-25] MEDS ORDERED: Piperacillin/Tazobactam 3.375 GM VIAL ONE (11:39)
[2023-03-25 13:35] LABS: #Eosinphils 0.2 thou/uL (0.0-0.7); #Lymphocytes 1.6 thou/uL (1.20-3.40); #Monocytes 0.9 thou/uL (0.11-0.59); #Neutrophils 10.9 thou/uL (1.40-6.50); %Basophils 0.3 % (0.0-1.0); %Eosinophils 1.8 % (0.0-10.0); %Monocytes 6.4 % (0.0-10.0); %Neutrophils 79.6 % (42.0-75.0); Hemoglobin 9.5 g/dL (12.0-16.0); Mean Corpuscular HGB CONC 33.1 g/dL (32.0-36.0); Mean Corpuscular Hemoglobin 29.7 pg (27.0-31.0); Mean Corpuscular Volume 89.5 fl (78.0-98.0); Mean Platelet Volume 6.9 fL (7.4-10.4); Platelet Count 412 10x3/uL (130-400); RBC Distribution Width 14.5 % (11.5-14.5); Red Blood Cell (RBC) Count 3.19 mill/uL (4.20-5.40); White Blood Cell (WBC) Count 13.7 10x3/uL (4.8-10.8)
== END 2023-03-25 15:58 | disposition short-term general hospital (02) ==
LOC: MADERS 01:32
DX: A41.9 Sepsis, unspecified organism (principal); E11.9 Type 2 diabetes mellitus without complications; E03.9 Hypothyroidism, unspecified; I11.0 Hypertensive heart disease with heart failure; I50.9 Heart failure, unspecified; E78.5 Hyperlipidemia, unspecified; Z79.4 Long term (current) use of insulin; Z79.01 Long term (current) use of anticoagulants; Z79.82 Long term (current) use of aspirin; Z79.899 Other long term (current) drug therapy; Z20.822 Contact with and (suspected) exposure to COVID-19
CPT/HCPCS: 36416; 71045; 80053; 81003; 83605; 83735; 83880; 84484; 85025; 87040; 87086; 93005; 96365; 96366; 96367; J1815; J2543; J3370; J3490; J7030; J7050; U0002

== ENCOUNTER 2023-04-09 07:12 | Emergency (ER) | payer MEDICARE ==
[2023-04-09 08:34] LABS: Bilirubin Negative (Negative); Blood, Urine Negative (Negative); Clarity Clear (Clear); Glucose, Urine (Dipstick) Negative (Negative); Ketone, Urine Negative (Negative); Leukocyte Negative (Negative); Nitrite Negative (Negative); Protein, Urine (Dipstick) Negative (Neg-Trace); Specific Gravity, Urine 1.015 (1.005-1.030); Urobilinogen 0.2 mg/dL (Less than 2)
[2023-04-09] MEDS ORDERED: predniSONE 10 MG TAB ONE (08:34)
[2023-04-09] MEDS ORDERED: Ipratropium/Albuterol 3 ML NEB ONE (08:34)
== END 2023-04-09 09:00 | disposition home or self-care (01) ==
LOC: MADERS 07:12
DX: J06.9 Acute upper respiratory infection, unspecified (principal); J45.901 Unspecified asthma with (acute) exacerbation; E11.9 Type 2 diabetes mellitus without complications; E03.9 Hypothyroidism, unspecified; E78.5 Hyperlipidemia, unspecified; I11.0 Hypertensive heart disease with heart failure; I50.9 Heart failure, unspecified; J44.9 Chronic obstructive pulmonary disease, unspecified; Z79.01 Long term (current) use of anticoagulants; Z79.899 Other long term (current) drug therapy; Z79.82 Long term (current) use of aspirin; Z79.4 Long term (current) use of insulin
CPT/HCPCS: 71045; 81003; 87086; 87804; J7512; J7620

== ENCOUNTER 2023-04-24 21:27 | Emergency (ER) | payer MEDICARE ==
[2023-04-24 22:32] LABS: #Basophils 0.1 thou/uL (0.0-0.2); #Eosinphils 0.4 thou/uL (0.0-0.7); #Lymphocytes 2.9 thou/uL (1.20-3.40); #Monocytes 1.1 thou/uL (0.11-0.59); #Neutrophils 9.5 thou/uL (1.40-6.50); %Basophils 0.8 % (0.0-1.0); %Eosinophils 2.8 % (0.0-10.0); %Monocytes 8.1 % (0.0-10.0); %Neutrophils 67.3 % (42.0-75.0); Hemoglobin 8.7 g/dL (12.0-16.0); Mean Corpuscular HGB CONC 34.5 g/dL (32.0-36.0); Mean Corpuscular Hemoglobin 30.3 pg (27.0-31.0); Mean Corpuscular Volume 87.7 fl (78.0-98.0); Mean Platelet Volume 5.8 fL (7.4-10.4); Platelet Count 420 10x3/uL (130-400); RBC Distribution Width 15.5 % (11.5-14.5); Red Blood Cell (RBC) Count 2.87 mill/uL (4.20-5.40); White Blood Cell (WBC) Count 14.1 10x3/uL (4.8-10.8)
[2023-04-24 22:52] LABS: ALT (SGPT) 21 U/L (8-55); AST (SGOT) 14 U/L (5-34); Albumin 3.6 g/dL (3.4-4.8); Alkaline Phosphatase 55 U/L (40-110); Anion Gap 17 mmol/L (10-20); BUN (Urea Nitrogen) 26 mg/dL (9.8-20.1); Bilirubin, Total 0.4 mg/dL (0.2-1.2); Calc. Creatinine Clearance 0 mL/min (70-130); Calcium 9.1 mg/dL (7.8-10.44); Carbon Dioxide 23 mmol/L (23-31); Chloride 97 mmol/L (98-107); Estimated GFR 50; Globulin 2.6 g/dL (2.4-3.5); Glucose 208 mg/dL (83-110); Potassium 5.2 mmol/L (3.5-5.1); Protein, Total 6.2 g/dL (5.8-8.1); Sodium 132 mmol/L (136-145)
[2023-04-24 23:11] LABS: CKMB 1.5 ng/mL (0-6.6)
[2023-04-24] MEDS ORDERED: Furosemide 40 MG/4 ML VIAL ONE (23:14)
== END 2023-04-24 23:44 | disposition home or self-care (01) ==
LOC: MADERS 21:27
DX: I11.0 Hypertensive heart disease with heart failure (principal); I50.9 Heart failure, unspecified; E11.9 Type 2 diabetes mellitus without complications; E03.9 Hypothyroidism, unspecified; J44.9 Chronic obstructive pulmonary disease, unspecified; Z79.899 Other long term (current) drug therapy; Z79.82 Long term (current) use of aspirin; Z79.4 Long term (current) use of insulin; Z79.01 Long term (current) use of anticoagulants
CPT/HCPCS: 71045; 80053; 82553; 83880; 84484; 85025; 93005; 96374; J1940

== ENCOUNTER 2024-02-20 18:49 | Emergency (ER) | payer MEDICARE | END 2024-02-20 19:40 | disposition home or self-care (01) | LOC: MADERS 18:49 | DX: I11.0 Hypertensive heart disease with heart failure (principal); I50.9 Heart failure, unspecified; E03.9 Hypothyroidism, unspecified; I48.91 Unspecified atrial fibrillation; J44.9 Chronic obstructive pulmonary disease, unspecified; Z79.01 Long term (current) use of anticoagulants; Z79.899 Other long term (current) drug therapy; Z79.82 Long term (current) use of aspirin | CPT/HCPCS: 99284 ==

== ENCOUNTER 2024-02-26 10:51 | Emergency (ER) | payer MEDICARE ==
[2024-02-26 11:38] LABS: Bilirubin Negative (Negative); Blood, Urine Negative (Negative); Glucose, Urine (Dipstick) >=1000 mg/dL (Negative); Ketone, Urine Negative (Negative); Leukocyte Moderate (Negative); Nitrite Negative (Negative); Protein, Urine (Dipstick) Negative (Neg-Trace); Urobilinogen 0.2 mg/dL (Less than 2); pH, Urine 6.5 (5.0-9.0)
[2024-02-26 11:39] LABS: CAUTI Indications for Culture Dysuria,urgency,freq; Clarity Hazy (Clear)
[2024-02-26 11:46] LABS: Bacteria/HPF 4+ HPF (None Seen); RBC/HPF 0-3 HPF (0-3); Squamous Epithelial 0-3 HPF (0-3)
[2024-02-26 11:57] LABS: #Basophils 0.1 thou/uL (0.0-0.2); #Eosinphils 0.5 thou/uL (0.0-0.7); #Lymphocytes 2.7 thou/uL (1.20-3.40); #Monocytes 1.2 thou/uL (0.11-0.59); #Neutrophils 9.7 thou/uL (1.40-6.50); %Basophils 0.9 % (0.0-1.0); %Eosinophils 3.5 % (0.0-10.0); %Monocytes 8.2 % (0.0-10.0); %Neutrophils 68.4 % (42.0-75.0); Hematocrit 35.4 % (36.0-47.0); Hemoglobin 10.8 g/dL (12.0-16.0); Mean Corpuscular HGB CONC 30.4 g/dL (32.0-36.0); Mean Corpuscular Hemoglobin 25.6 pg (27.0-31.0); Mean Corpuscular Volume 84.3 fl (78.0-98.0); Mean Platelet Volume 5.7 fL (7.4-10.4); Platelet Count 454 10x3/uL (130-400); RBC Distribution Width 16.3 % (11.5-14.5); White Blood Cell (WBC) Count 14.2 10x3/uL (4.8-10.8)
[2024-02-26 12:10] LABS: ALT (SGPT) 12 U/L (8-55); AST (SGOT) 15 U/L (5-34); Albumin 4.2 g/dL (3.4-4.8); Alkaline Phosphatase 93 U/L (40-110); Anion Gap 17 mmol/L (10-20); BUN (Urea Nitrogen) 36 mg/dL (9.8-20.1); Bilirubin, Total 0.4 mg/dL (0.2-1.2); Calc. Creatinine Clearance 0 mL/min (70-130); Calcium 10.1 mg/dL (7.8-10.44); Carbon Dioxide 21 mmol/L (23-31); Chloride 101 mmol/L (98-107); Estimated GFR 42; Globulin 3.7 g/dL (2.4-3.5); Glucose 168 mg/dL (83-110); Magnesium 2.3 mg/dL (1.6-2.6); Potassium 4.8 mmol/L (3.5-5.1); Protein, Total 7.9 g/dL (5.8-8.1); Sodium 134 mmol/L (136-145)
[2024-02-26] MEDS ORDERED: cefTRIAXone (ROCEPHIN) 1 GM VIAL ONE (12:24)
[2024-02-26] MEDS ORDERED: Sodium Chloride 0.9% 100 ML ONE (12:24)
== END 2024-02-26 13:25 | disposition home or self-care (01) ==
LOC: MADERS 10:51
DX: N39.0 Urinary tract infection, site not specified (principal); D75.839 Thrombocytosis, unspecified; J44.9 Chronic obstructive pulmonary disease, unspecified; I48.91 Unspecified atrial fibrillation; I11.0 Hypertensive heart disease with heart failure; I50.9 Heart failure, unspecified; E03.9 Hypothyroidism, unspecified; E78.5 Hyperlipidemia, unspecified; G47.33 Obstructive sleep apnea (adult) (pediatric); E11.9 Type 2 diabetes mellitus without complications; Z79.82 Long term (current) use of aspirin; Z79.01 Long term (current) use of anticoagulants; Z79.899 Other long term (current) drug therapy
CPT/HCPCS: 80053; 81001; 83735; 85025; 87077; 87086; 87186; 96365; J0696; J3490

== ENCOUNTER 2024-12-12 21:08 | Emergency (ER) | payer MEDICARE ==
[2024-12-12 21:58] LABS: Hematocrit 28.3 % (36.0-47.0); Hemoglobin 8.8 g/dL (12.0-16.0); Mean Corpuscular HGB CONC 30.9 g/dL (32.0-36.0); Mean Corpuscular Hemoglobin 24.9 pg (27.0-31.0); Mean Corpuscular Volume 80.5 fl (78.0-98.0); Mean Platelet Volume 5.9 fL (7.4-10.4); Platelet Count 413 10x3/uL (130-400); RBC Distribution Width 16.3 % (11.5-14.5); Red Blood Cell (RBC) Count 3.52 mill/uL (4.20-5.40); White Blood Cell (WBC) Count 12.5 10x3/uL (4.8-10.8)
[2024-12-12 22:05] LABS: INR-International Normal Ratio 1.2; Prothrombin Time 15.2 sec (12.0-14.7)
[2024-12-12 22:06] LABS: PTT 41.8 sec (22.9-36.1)
[2024-12-12 22:13] LABS: Base Excess-Venous -3.8 mmol/L (-2.0 to 3.0); Bicarbonate (HCO3v) 21.6 mmol/L (22.0-28.0); CO2 Tension (PvCO2) 39.1 mmHg (42.0-51.0); Calcium, Ionized 1.25 mmol/L (1.15-1.33); Chloride 102 mmol/L (98-107); Hemoglobin - Calc 10.4 g/dL (12.0-16.0); Potassium 4.4 mmol/L (3.5-5.1); Sodium 134 mmol/L (138-145); T. Carbon Dioxide 22.8 mmol/L (22.0-28.0)
[2024-12-12 22:17] LABS: ALT (SGPT) 13 U/L (8-55); AST (SGOT) 13 U/L (5-34); Albumin 3.7 g/dL (3.4-4.8); Alkaline Phosphatase 66 U/L (40-110); Anion Gap 14 mmol/L (10-20); BUN (Urea Nitrogen) 23 mg/dL (9.8-20.1); Bilirubin, Total 0.3 mg/dL (0.2-1.2); Calc. Creatinine Clearance 0 mL/min (70-130); Calcium 8.6 mg/dL (7.8-10.44); Carbon Dioxide 17 mmol/L (23-31); Chloride 105 mmol/L (98-107); Estimated GFR 52; Globulin 3.1 g/dL (2.4-3.5); Glucose 115 mg/dL (83-110); Magnesium 2.1 mg/dL (1.6-2.6); Potassium 4.4 mmol/L (3.5-5.1); Protein, Total 6.8 g/dL (5.8-8.1); Sodium 132 mmol/L (136-145)
[2024-12-12 22:25] LABS: Troponin I Less than 0.010 ng/mL (< 0.028)
[2024-12-12 22:34] LABS: Bilirubin Negative (Negative); Blood, Urine Negative (Negative); Clarity Clear (Clear); Glucose, Urine (Dipstick) Negative (Negative); Ketone, Urine Negative (Negative); Leukocyte Moderate (Negative); Nitrite Positive (Negative); Protein, Urine (Dipstick) Negative (Neg-Trace); Urobilinogen 0.2 mg/dL (Less than 2)
[2024-12-12 22:45] LABS: #Basophils 0.1 thou/uL (0.0-0.2); #Eosinophils 0.2 thou/uL (0.0-0.7); #Lymphocytes 1.4 thou/uL (1.20-3.40); #Monocytes 0.8 thou/uL (0.11-0.59); #Neutrophils 10.1 thou/uL (1.40-6.50); %Basophils 0.6 % (0.0-1.0); %Eosinophils 1.3 % (0.0-10.0); %Lymphocytes 11.1 % (21.0-51.0); %Monocytes 6.4 % (0.0-10.0); %Neutrophils 80.6 % (42.0-75.0); MDiff Complete? YES; Microcytosis SLIGHT = 6-15 cells (100X) (0-5/hpf); Platelet Adequacy Comment Appears Increased
[2024-12-12 22:48] LABS: Bacteria/HPF 2+ HPF (None Seen); CAUTI Indications for Culture Pregnancy; RBC/HPF 0-3 HPF (0-3); Squamous Epithelial 0-3 HPF (0-3)
[2024-12-12 22:50] LABS: Urine Culture Reflex Yes Yes
[2024-12-12] MEDS ORDERED: Piperacillin/Tazobactam 3.375 GM VIAL ONE (23:02)
[2024-12-12] MEDS ORDERED: Furosemide 40 MG (4 mL) VIAL ONE (23:02)
== END 2024-12-13 02:56 | disposition short-term general hospital (02) ==
LOC: MADERS 21:08
DX: I11.0 Hypertensive heart disease with heart failure (principal); I50.9 Heart failure, unspecified; N39.0 Urinary tract infection, site not specified; J44.9 Chronic obstructive pulmonary disease, unspecified; I48.91 Unspecified atrial fibrillation; E03.9 Hypothyroidism, unspecified; E11.9 Type 2 diabetes mellitus without complications; Z79.51 Long term (current) use of inhaled steroids; Z79.890 Hormone replacement therapy; Z79.84 Long term (current) use of oral hypoglycemic drugs; Z79.01 Long term (current) use of anticoagulants; Z79.82 Long term (current) use of aspirin; Z79.899 Other long term (current) drug therapy
CPT/HCPCS: 71045; 80053; 81001; 82330; 82435; 82803; 83605; 83735; 83880; 84132; 84295; 84484; 85014; 85025; 85610; 85730; 87077; 87086; 87186; 93005; 94760; 96365; 96375; J1940; J2543

== ENCOUNTER 2025-09-20 18:02 | Emergency (ER) | payer MEDICARE ==
[2025-09-20] MEDS ORDERED: Adenosine 6 mg (2 mL) VIAL ONE (18:23)
[2025-09-20 18:26] LABS: #Basophils 0.1 thou/uL (0.0-0.2); #Eosinophils 0.1 thou/uL (0.0-0.7); #Lymphocytes 2.7 thou/uL (1.20-3.40); #Monocytes 0.9 thou/uL (0.11-0.59); #Neutrophils 7.9 thou/uL (1.40-6.50); %Basophils 0.7 % (0.0-1.0); %Eosinophils 1.3 % (0.0-10.0); %Lymphocytes 22.6 % (21.0-51.0); %Monocytes 8.0 % (0.0-10.0); %Neutrophils 67.5 % (42.0-75.0); Hematocrit 38.6 % (36.0-47.0); Hemoglobin 12.4 g/dL (12.0-16.0); Mean Corpuscular Hemoglobin 29.8 pg (27.0-31.0); Mean Corpuscular Volume 92.4 fl (78.0-98.0); Platelet Count 428 10x3/uL (130-400); Red Blood Cell (RBC) Count 4.17 mill/uL (4.20-5.40); White Blood Cell (WBC) Count 11.7 10x3/uL (4.8-10.8)
[2025-09-20] MEDS ORDERED: dilTIAZem 25 MG/5 ML VIAL ONE (18:29)
[2025-09-20 18:42] LABS: ALT (SGPT) 11 U/L (Less than 34); AST (SGOT) 23 U/L (11-34); Albumin 4.0 g/dL (3.1-4.5); Alkaline Phosphatase 76 U/L (40-110); Anion Gap 18 mmol/L (10-20); BUN (Urea Nitrogen) 26 mg/dL (9.8-20.1); Bilirubin, Total 0.2 mg/dL (0.3-1.2); Calc. Creatinine Clearance 0 mL/min (70-130); Calcium 9.5 mg/dL (7.8-10.44); Carbon Dioxide 18 mmol/L (23-31); Chloride 103 mmol/L (98-107); Globulin 3.6 g/dL (2.4-3.5); Glucose 125 mg/dL (83-110); Potassium 3.9 mmol/L (3.5-5.1); Sodium 135 mmol/L (136-145)
[2025-09-20 18:45] LABS: Troponin I Less than 0.010 ng/mL (< 0.028)
== END 2025-09-20 23:10 | disposition short-term general hospital (02) ==
LOC: MADERS 18:02
DX: I48.91 Unspecified atrial fibrillation (principal); I11.0 Hypertensive heart disease with heart failure; I50.9 Heart failure, unspecified; J44.9 Chronic obstructive pulmonary disease, unspecified; E11.9 Type 2 diabetes mellitus without complications; E03.9 Hypothyroidism, unspecified; E78.5 Hyperlipidemia, unspecified; Z79.82 Long term (current) use of aspirin; Z79.01 Long term (current) use of anticoagulants; Z79.899 Other long term (current) drug therapy; Z79.51 Long term (current) use of inhaled steroids; Z79.890 Hormone replacement therapy
CPT/HCPCS: 71045; 80053; 83880; 84484; 85025; 93005; 94760; J7050; 96365; 96366; 96376; J0153

== ENCOUNTER 2025-11-19 00:04 | Emergency (ER) | payer MEDICARE ==
[2025-11-19 01:01] LABS: #Basophils 0.1 thou/uL (0.0-0.2); #Eosinophils 0.2 thou/uL (0.0-0.7); #Lymphocytes 2.0 thou/uL (1.20-3.40); #Monocytes 1.3 thou/uL (0.11-0.59); #Neutrophils 11.0 thou/uL (1.40-6.50); %Basophils 0.8 % (0.0-1.0); %Eosinophils 1.7 % (0.0-10.0); %Lymphocytes 13.5 % (21.0-51.0); %Monocytes 8.8 % (0.0-10.0); %Neutrophils 75.2 % (42.0-75.0); Hematocrit 37.8 % (36.0-47.0); Hemoglobin 12.2 g/dL (12.0-16.0); Mean Corpuscular Hemoglobin 29.8 pg (27.0-31.0); Mean Corpuscular Volume 92.5 fl (78.0-98.0); Platelet Count 340 10x3/uL (130-400); Red Blood Cell (RBC) Count 4.09 mill/uL (4.20-5.40); White Blood Cell (WBC) Count 14.6 10x3/uL (4.8-10.8)
[2025-11-19 01:10] LABS: ALT (SGPT) 70 U/L (Less than 34); AST (SGOT) 57 U/L (11-34); Albumin 3.7 g/dL (3.1-4.5); Alkaline Phosphatase 68 U/L (40-110); Anion Gap 17 mmol/L (10-20); BUN (Urea Nitrogen) 20 mg/dL (9.8-20.1); Bilirubin, Total 0.9 mg/dL (0.3-1.2); Calc. Creatinine Clearance 0 mL/min (70-130); Calcium 9.1 mg/dL (7.8-10.44); Carbon Dioxide 18 mmol/L (23-31); Chloride 95 mmol/L (98-107); Globulin 3.3 g/dL (2.4-3.5); Glucose 121 mg/dL (83-110); Potassium 3.8 mmol/L (3.5-5.1); Sodium 126 mmol/L (136-145); Troponin I 0.041 ng/mL (< 0.028)
[2025-11-19] MEDS ORDERED: Azithromycin 500 MG VIAL ONE (01:25)
[2025-11-19] MEDS ORDERED: cefTRIAXone (ROCEPHIN) 1 GM VIAL ONE (01:25)
[2025-11-19 04:07] LABS: Troponin I 0.030 ng/mL (< 0.028)
== END 2025-11-19 04:02 | disposition short-term general hospital (02) ==
LOC: MADERS 00:04
DX: J44.1 Chronic obstructive pulmonary disease with (acute) exacerbation (principal); J18.0 Bronchopneumonia, unspecified organism; E87.1 Hypo-osmolality and hyponatremia; R09.02 Hypoxemia; R79.89 Other specified abnormal findings of blood chemistry; L76.34 Postprocedural seroma of skin and subcutaneous tissue following other procedure; I48.91 Unspecified atrial fibrillation; E11.9 Type 2 diabetes mellitus without complications; I11.0 Hypertensive heart disease with heart failure; I50.9 Heart failure, unspecified
CPT/HCPCS: 71045; 80053; 83880; 84484 ×2; 85025; 87040; 87428; 93005; 94760; J0456; J0696; J3010; 36415; 96365; 96367; 96375